=== PATIENT | female | born 1990 | race Caucasian/White ===

== ENCOUNTER 2018-03-28 02:39 | Emergency (ER) | payer MEDICAID, SELFPAY ==
[2018-03-28] VITALS (7 sets, daily range): BP systolic 106–148; BP diastolic 77–100; PULSE 58–93; RESP 12–26; TEMP 35.1–36.1; O2SAT 95–98; BMI 35.7
--- NOTE | 2018-03-28 02:41 | CT_ITS ---
STUDY: CT BRAIN WITHOUT CONTRAST REASON FOR EXAM: Female, 27 years old. Trauma, EtOH, fall down stairs, unresponsive, blown pupil, hit head on concrete RADIATION DOSAGE (If Supplied By Facility): CTDIvol = ( 44.99 ) mGy, DLP = ( 846.73 ) mGycm TECHNIQUE: Transaxial CT imaging of the brain was performed without administration of intravenous contrast material. Multiplanar coronal and sagittal images were reformatted. Streak artifact caused by metallic earrings. Individualized dose optimization techniques were used for this CT. COMPARISON: None. FINDINGS: Right occipital soft tissue swelling. Nondisplaced calvarial fracture of the right occipital bone extending inferiorly to the skull base raising the right jugular foramen. Intact foramen magnum. There is a left subdural acute hemorrhage spanning from the frontal to parietal calvarium with a width of approximately 0.3 to 0.4 cm and a acute right frontal subdural hemorrhage with a width of 0.2 to 0.3 cm with minimal hemorrhagic extension to the temporal calvarium. Subtle hyperattenuation in the arytenoid space. Possible mild hemorrhagic contusion in the temporal lobes versus high mild blood products in the sylvian fissures. Mild mass effect of the left lateral ventricle, mild shift to the right 0.3 cm. Effacement of sulcal and gyral pattern and ambient cisterns Normal size ventricles and extra-axial spaces for the patient's age. Normal white matter tracts of the cerebral hemispheres. Normal basal ganglia and thalami. Normal brainstem. Normal cerebellum. There are no findings of an acute ischemic infarction. Trace fluid in the sphenoid sinuses. CT/Brain/Head without Contrast IMPRESSION: Bilateral left greater than right subdural hemorrhage, small component of subarachnoid hemorrhage, possible hemorrhagic contusion in the temporal lobes. Cerebral edema, minimal shift to the right by 0.3 cm. Effacement of the ambient cisterns. Early herniation possible. Nondisplaced right occipital calvarial fracture extending into the skull base traversing the jugular foramen. These findings were discussed on the telephone with Dr. Delong at 315 hrs. EST on 03/28/2018. Electronically Signed: Tomasa Anthony MD at 3:20 EDT , Service support ,
--- NOTE | 2018-03-28 02:42 | CT_ITS ---
STUDY: CT CERVICAL SPINE WITHOUT CONTRAST REASON FOR EXAM: Female, 27 years old. Trauma, EtOH, fall down stairs, unresponsive, blown pupil, hit head on concrete RADIATION DOSAGE (If Supplied By Facility): CTDIvol = ( 30.56 ) mGy, DLP = ( 616.35 ) mGycm TECHNIQUE: High resolution transaxial imaging was performed without contrast material. Sagittal and coronal images were reconstructed. Individualized dose optimization techniques were used for this CT. COMPARISON: None FINDINGS: Normal craniovertebral junction. Normal anterior atlantoaxial articulation. Normal odontoid process. Normal cervical lordosis. Normal vertebral bodies and posterior osseous elements. C2-3: Normal endplates. Normal disc height and morphology. Normal central canal and intervertebral neuroforamina. C3-4: Normal endplates. Normal disc height and morphology. Normal central canal and intervertebral neuroforamina. C4-5: Normal endplates. Normal disc height and morphology. Normal central canal and intervertebral neuroforamina. C5-6: Normal endplates. Normal disc height and morphology. Normal central canal and intervertebral neuroforamina. C6-7: Normal endplates. Normal disc height and morphology. Normal central canal and intervertebral neuroforamina. C7-T1: Normal endplates. Normal disc height and morphology. Normal central canal and intervertebral neuroforamina. Normal visualized soft tissue structures. CT/Spine Cervical without Contras IMPRESSION: There is no acute displaced fracture or dislocation of the cervical spine. There is a right calvarial fracture extending into the skull base traversing the jugular foramen. These findings were discussed on the telephone with Dr. Delong at 3:15 hrs. EST on 03/28/2018. Electronically Signed: Tomasa Anthony MD at 3:21 EDT , Service support ,
--- NOTE | 2018-03-28 02:46 | EKG12_ITS ---
Test Reason : UNRESPONSIVE Blood Pressure : / mmHG Vent. Rate : 063 BPM Atrial Rate : 063 BPM P-R Int : 224 ms QRS Dur : 094 ms QT Int : 462 ms P-R-T Axes : 050 070 027 degrees QTc Int : 472 ms Sinus rhythm with 1st degree A-V block Otherwise normal ECG Confirmed by VANDANA BAH, AMANDA ([id number]), photo editor MARIELENA VILLAVICENCIO ([id number]) on 03/30/2018 3:25:57 PM Referred By: STEFANO Confirmed By:AMANDA ROSS MD
--- NOTE | 2018-03-28 03:10 | RAD_ITS ---
STUDY: X-RAY CHEST REASON FOR EXAM: Female, 27 years old. Trauma, fall, and the patient. TECHNIQUE: Single AP portable view of the chest. COMPARISON: None. FINDINGS: Endotracheal tube tip approximately 3 cm superior to the marce. Enteric tube coiling over the stomach in good position. There are superimposed monitor leads. There is a superimposed backboard. Mild elevated right hemidiaphragm. There is no demonstrated pneumothorax. There is no demonstrated pleural abnormality. Normal size heart. Normal mediastinum and abril. Normal visualized pulmonary arteries. Normal visualized aortic arch and descending thoracic aorta. Normal visualized thoracic spine. Normal visualized ribs, clavicles, and shoulders. There is no demonstrated abnormality of the visualized soft tissue structures of the upper abdomen. RAD/Chest 1 View (Portable) IMPRESSION: Lines appear in good position. There is no demonstrated pneumothorax. Electronically Signed: Tomasa Anthony MD at 3:35 EDT , Service support ,
--- NOTE | 2018-03-28 03:10 | ED.RN ---
PER MOTHER PATIENT DRANK ROUGHLY TWO BOTTLES OF WINE TONIGHT
--- NOTE | 2018-03-28 03:10 | ED.RN ---
MEDICATIONS FOR INTUBATION 0300 30 MG ETOMIDATE 0300 50 MG ROCURONIUM PATIENT INTUBATED AT THIS TIME
--- NOTE | 2018-03-28 03:11 | ED.VISSUMM ---
- ER Visit Summary Date of Service: 03/28/18 Chief Complaint: Fall down stairs History of Present Illness: The patient is a 27 F brought by EMS unresponsive after a fall inside the house. Visiting from [place] with parents. Reported 2 bottles of wine, patient was walking up the stairs when she closed the door falling down 8 wooden steps with the concrete bottom. She was not responsive afterwards. EMS reports blown pupil. Patient does not take anticoagulation medicines. She has an IUD. No past medical history. Occasional tobacco history occasional alcohol, she is a [employer] student. Physical Examination: Primary survey: Unresponsive, had spontaneous respirations, pulses intact ?4. Secondary survey: Blood in the posterior scalp, no active bleeding. Some swelling left crown. C-collar is in place. Pupils 5 mm on the left 3 mm on the right. No facial trauma. Flank examination noted abrasion right flank region. No step-offs on the midline. Patient withdrawal to pain on the left. No withdrawal to pain lower extremities or right upper extremity. Test Results: CT head and neck: No cervical fracture. CT head and discussion with radiologist, bilateral subdural hemorrhage, left greater than right. Left 3-4 mm, right 2 mm, reported midline shift left to right of 3 mm. There is a skull base fracture in the right extends to the jugular foramen, magnum is intact. Reported subtle subarachnoid hemorrhage. Also reported some cerebral edema. No herniation currently. Cervical spine CT negative per radiologist. Labs are pending. Emergency Department Course and Treatment: Patient head injury blown pupil. She was having spontaneous respirations. With clear injuries, sent immediately to CT for head and neck. Family updated with concerns and plan for intubation on return. I discussed with [facility] ED doctor Dr. Li for concerns of trauma injury and plan to transfer. On return patient attempted intubation with etomidate only to avoid paralysis of 30 mg okay using a Glidoscope. However with clenching, difficulty in passing the tube. Therefore 50 mg rocuronium was given,, MAC 4 blade used to pass 7.5 Bur[place] tube on first pass. Bilateral breath sounds. Positive capnography return. Results discussion with radiology as above with bilateral subdural hematoma, midline shift to the right. Skull fracture right occipital, reported early cerebral edema with risk of herniation. She was started on mannitol, her ventilation rate was increased. Maintain on 100% oxygen. I rediscussed with the ED physician at [facility], they are still able to manage the patient. Family updated. Treatment Plan: [] Disposition: Transfer to [facility] Impression: 1. Fall 2. Skull fracture 3. Bilateral subdermal hematoma 4. Sub-arachnoid hemorrhage 5. Skull base fracture 6. Alcohol 7. Intubation This note was generated with [employer] dictation software. It may contain incorrect words, spelling, and punctuation that were not noted in review of the chart prior to signing ED Disposition - Plan for ED Patient: Disposition: [facility] Chief Complaint: Trauma Diagnosis: Subdural hematoma, Subarachnoid hemorrhage, Skull fracture, Fall Referrals: [facility] Doctor,Out of [Primary Care Provider] -
[2018-03-28 03:15] LABS: Absolute Lymphocyte Count 5.89 X10^3/ul (0.83-4.51); Absolute Neutrophil Count 5.7 X10^3/uL (2.0-7.7); Basophil# 0.02 X10^3/uL; Basophil% 0.2 % (0-1); Eosinophil# 0.16 X10^3/uL; Eosinophils% 1.2 % (0-5); Hematocrit 39.2 % (37-47); Hemoglobin 12.7 g/dl (12.0-15.0); Lymphocyte # 5.89 X10^3/ul (4.0); Lymphocyte % 45.9 % (19-41); Mean Corp Hgb Conc 32.4 g/gl (32-36); Mean Corpuscular Hgb 30.2 pg (27.0-32.0); Mean Corpuscular Volume 93.1 fL (81-99); Mean Platelet Vol. 9.3 fl (6.2-12.0); Monocyte# 1.07 X10^3/uL; Monocyte% 8.3 % (0-10); Neutrophil # 5.65 X10^3/uL (2.7-7.7); Neutrophil % 44.1 % (47-70); Platelet Count 271 K/mm3 (150-450); RBC Distribution Width CV 13.1 % (11.6-14.6); RBC Distribution Width SD 44.8 fl (35.1-43.9); Red Blood Count 4.21 M/mm3 (4.2-5.4); White Blood Count 12.8 K/mm3 (4.4-11.0)
--- NOTE | 2018-03-28 03:17 | ED.DCSUM_ITS ---
- ER Visit Summary Date of Service: 03/28/18 Chief Complaint: Fall down stairs History of Present Illness: The patient is a 27 F brought by EMS unresponsive after a fall inside the house. Visiting from [place] with parents. Reported 2 bottles of wine, patient was walking up the stairs when she closed the door falling down 8 wooden steps with the concrete bottom. She was not responsive afterwards. EMS reports blown pupil. Patient does not take anticoagulation medicines. She has an IUD. No past medical history. Occasional tobacco history occasional alcohol, she is a [employer] student. Physical Examination: Primary survey: Unresponsive, had spontaneous respirations , pulses intact ?4. Secondary survey: Blood in the posterior scalp, no active bleeding. Some swelling left crown. C-collar is in place. Pupils 5 mm on the left 3 mm on the right. No facial trauma. Flank examination noted abrasion right flank region. No step-offs on the midline. Patient withdrawal to pain on the left. No withdrawal to pain lower extremities or right upper extremity. Test Results: CT head and neck: No cervical fracture. CT head and discussion with radiologist, bilateral subdural hemorrhage, left greater than right. Left 3-4 mm, right 2 mm, reported midline shift left to right of 3 mm. There is a skull base fracture in the right extends to the jugular foramen, magnum is intact. Reported subtle subarachnoid hemorrhage. Also reported some cerebral edema. No herniation currently. Cervical spine CT negative per radiologist. Labs are pending. Emergency Department Course and Treatment: Patient head injury blown pupil. She was having spontaneous respirations. With clear injuries, sent immediately to CT for head and neck. Family updated with concerns and plan for intubation on return. I discussed with [place] ED doctor Dr. Li for concerns of trauma injury and plan to transfer. On return patient attempted intubation with etomidate only to avoid paralysis of 30 mg okay using a Glidoscope. However with clenching, difficulty in passing the tube. Therefore 50 mg rocuronium was given,, MAC 4 blade used to pass 7.5 [place] tube on first pass. Bilateral breath sounds. Positive capnography return. Results discussion with radiology as above with bilateral subdural hematoma, midline shift to the right. Skull fracture right occipital, reported early cerebral edema with risk of herniation. She was started on mannitol, her ventilation rate was increased. Maintain on 100% oxygen. I rediscussed with the ED physician at [facility], they are still able to manage the patient. Family updated. Treatment Plan: [] Disposition: Transfer to [place] Impression: 1. Fall 2. Skull fracture 3. Bilateral subdermal hematoma 4. Sub -arachnoid hemorrhage 5. Skull base fracture 6. Alcohol 7. Intubation This note was generated with [employer] dictation software. It may contain incorrect words, spelling, and punctuation that were not noted in review of the chart prior to signing ED Disposition - Plan for ED Patient: Disposition: [facility] Chief Complaint: Trauma Diagnosis: Subdural hematoma, Subarachnoid hemorrhage, Skull fracture, Fall Referrals: [facility] Doctor,Out of [Primary Care Provider] -
[2018-03-28 03:18] LABS: Differential Indicated SCAN CRITERIA MET; POSITIVE COUNT NO; POSITIVE DIFFERENTIAL YES; POSITIVE MORPHOLOGY YES
[2018-03-28 03:20] LABS: International Normalized Ratio 1.2; Partial Thromboplast Time 25.9 Seconds (24.1-36.2); Prothrombin Time (Protime)PT. 14.8 SECONDS (11.7-14.9)
[2018-03-28] MEDS: 0.9% Normal Saline 1,000 ML 1000 ML IV (03:21)
--- NOTE | 2018-03-28 03:29 | ED.RN ---
WARM BLANKETS APPLIED TO PATIENT AT THIS TIME
[2018-03-28] MEDS: 0.9% Normal Saline 1,000 ML 15 ML IV (03:32)
[2018-03-28 03:35] LABS: Anion Gap 14 (5-15); BUN 6 mg/dL (7-18); BUN/Creat Ratio 8.1 RATIO (10-20); Calcium,Total 7.3 mg/dL (8.5-10.1); Chloride 109 mmol/L (98-107); Creatinine, Serum 0.74 mg/dL (0.55-1.02); EST Glomerular Filtration Rate 98 mL/min (>60); Est Glom Filt Rate - Afr Amer 119 mL/min (>60); Estimated Creatinine Clearance 97.74 ml/min; Glucose 132 mg/dL (74-106); Sodium Level 142 mmol/L (136-145)
[2018-03-28 03:41] LABS: Amphetamine Urine VISTA NEGATIVE (<1000 ng/mL); Barbiturate Urine VISTA NEGATIVE (< 200 ng/mL); Benzodiazepine Urine VISTA NEGATIVE (< 200 ng/mL); Cocaine Urine VISTA NEGATIVE (< 300 ng/mL); Ecstacy Urine VISTA NEGATIVE (< 500 ng/mL); Methadone Urine VISTA NEGATIVE (< 300 ng/mL); PCP Urine VISTA NEGATIVE (< 25 ng/mL); THC Urine VISTA NEGATIVE (< 50 ng/mL); Vista UDS pH Range 5
[2018-03-28 03:49] LABS: Pregnancy, Serum, hCG Quali. NEGATIVE Negative (0-9 Nonpreg)
== END 2018-03-28 04:05 | disposition short-term general hospital (02) ==
PROVIDERS: Emergency Provider Emergency Medicine
DX: S02.119A Unspecified fracture of occiput, initial encounter for closed fracture (principal); S06.6X9A Traumatic subarachnoid hemorrhage with loss of consciousness of unspecified duration, initial encounter; S06.5X9A Traumatic subdural hemorrhage with loss of consciousness of unspecified duration, initial encounter; S06.1X9A Traumatic cerebral edema with loss of consciousness of unspecified duration, initial encounter; S30.811A Abrasion of abdominal wall, initial encounter; W10.9XXA Fall (on) (from) unspecified stairs and steps, initial encounter; Y93.9 Activity, unspecified; Y92.009 Unspecified place in unspecified non-institutional (private) residence as the place of occurrence of the external cause; Y99.9 Unspecified external cause status; Z97.5 Presence of (intrauterine) contraceptive device; Z72.0 Tobacco use
CPT/HCPCS: 31500; 51702; 70450; 71045; 72125; 80048; 80307; 80320; 84703; 85025; 85610; 85730; 93005; 94002; 96365; 99251; 99285; J7030; A4216; G0463; G0480